=== PATIENT | male | born 2000 | race Caucasian/White ===

== ENCOUNTER 2023-01-07 17:54 | Emergency (ER) | payer OTHER, SELFPAY ==
[2023-01-07 18:06] VITALS: BP 137/76; PULSE 75; RESP 16; TEMP 37.5; O2SAT 99; BMI 24.5
--- NOTE | 2023-01-07 18:18 | ED.SKABFB ---
HPI - Skin/Abscess/Foreign Bdy <DILIP Parks - Last Filed: 01/07/23 19:30> General Chief complaint: Skin/Abscess/Foreign Body Stated complaint: Head lac Time Seen by Provider: 01/07/23 18:17 Source: patient Mode of arrival: Ambulatory Limitations: no limitations History of Present Illness HPI narrative: 22-year-old male who presents to the emergency department with a laceration to the crown of his scalp after he states he ran into an airplane weighing and had bleeding from a scalp. He denies having a headache, difficulty concentrating, blurred vision, dizziness or loss of consciousness, denies neck pain or shortness of breath, denies vomiting. He states that his tetanus is up-to-date. Was sent over from the [employer] with a work-related injury and did not bring work injury paperwork today. He denies any medical condition, not anticoagulated. Related Data Allergies Allergy/AdvReac Type Severity Reaction Status Date / Time No Known Drug Allergies Allergy Verified 01/07/23 18:10 Review of Systems <DILIP Parks - Last Filed: 01/07/23 19:30> Review of Systems ROS Unobtainable: All systems reviewed & are unremarkable except as noted in HPI and below Patient History <DILIP Parks - Last Filed: 01/07/23 19:30> Social History Smoking Status: Never smoker Smoking Status: Never smoker alcohol intake frequency: 0-2 drinks per day Substance Use Type: does not use Exam <DILIP Parks - Last Filed: 01/07/23 19:30> Narrative Exam Narrative: Reviewed vitals signs and nursing notes. General: Pleasant, sitting upright, in no acute distress, well groomed, afebrile HEENT: symmetrical facial expressions, moist mucous membranes, neck is supple, scalp with 2 cm laceration, this is linear, no foreign body, patient has a thick had a pair, this was numbed up with lidocaine with epi, and staple repair was completed with 4 debby. Patient tolerated well, wound is hemostatic. MSK: moves all extremities, no weakness, normal tone, ambulatory without deficit Skin: brisk capillary refill, without rash or wound Neuro: normal speech and cognition, A&O x3 Initial Vital Signs Initial Vital Signs: Vital Signs Temperature 99.5 F 01/07/23 18:06 Pulse Rate 75 01/07/23 18:06 Respiratory Rate 16 01/07/23 18:06 Blood Pressure 137/76 01/07/23 18:06 Pulse Oximetry 99 01/07/23 18:06 Oxygen Delivery Method Room Air 01/07/23 18:06 <Mich Tirado DO - Last Filed: 01/07/23 19:34> Initial Vital Signs Initial Vital Signs: Vital Signs Temperature 99.5 F 01/07/23 18:06 Pulse Rate 75 01/07/23 18:06 Respiratory Rate 16 01/07/23 18:06 Blood Pressure 137/76 01/07/23 18:06 Pulse Oximetry 99 01/07/23 18:06 Oxygen Delivery Method Room Air 01/07/23 18:06 Procedures <DILIP Parks - Last Filed: 01/07/23 19:30> Laceration Repair Laceration 1: Site: scalp Side (If applicable): left Size (cm): 2 Description: linear Depth: simple, single layer Local Anesthetic: lidocaine 2% and with epi Amount of anesthesia used (mL): 3 Pre-repair: wound explored, irrigated extensively and deep structures intact Skin layer closed with: debby (x4) Course <DILIP Parks - Last Filed: 01/07/23 19:30> Vital Signs Vital signs: Vital Signs - 8 hr 01/07/23 18:06 Temperature 99.5 F Pulse Rate 75 Respiratory Rate 16 Blood Pressure 137/76 Pulse Oximetry 99 Oxygen Delivery Method Room Air <Mich Tirado DO - Last Filed: 01/07/23 19:34> Vital Signs Vital signs: Vital Signs - 8 hr 01/07/23 18:06 Temperature 99.5 F Pulse Rate 75 Respiratory Rate 16 Blood Pressure 137/76 Pulse Oximetry 99 Oxygen Delivery Method Room Air MDM - Skin/Abscess/Foreign Bdy <DILIP Parks - Last Filed: 01/07/23 19:30> MDM Narrative Medical decision making narrative: Chief Complaint: Head injury with laceration Multiple etiologies for patient's symptoms considered including, but not limited to: Soft tissue injury, skull fracture, intracranial hemorrhage, C-spine injury, concussion I have independently reviewed the patient's vital signs and nursing notes as well as prior records if available. Pertinent Imaging reviewed: [facility] C-spine and [place] head CT ruled out C-spine CT and head CT Course of care: Patient's wound was repaired with debby, tolerated well, his tetanus is up-to-date, he does not have any concussive symptoms. Recommend to follow-up with his PCP, have staple removal in 7 days. Given strict return precautions for worsening symptoms, altered mentation, dizziness, vomiting, neck pain to return. Social considerations that may affect disposition: none Questions are addressed and there is agreement with the plan and for follow-up. Patient is appropriate for outpatient management. Discharge Plan Departure Patient Disposition: Home Clinical Impression: Work related injury Laceration of head Qualifiers: Encounter type: initial encounter Location of open wound of head: scalp Foreign body presence: without foreign body Qualified Code(s): S01.01XA - Laceration without foreign body of scalp, initial encounter Head injury Qualifiers: Encounter type: initial encounter Qualified Code(s): S09.90XA - Unspecified injury of head, initial encounter Instructions: DI for Laceration Repair -- Debby Activity Restrictions/Additional Instructions: *You have been diagnosed with a head laceration. Please have these debby removed in 7 days. You may have a concussion, look out for difficulty concentrating, blurred vision, headache, dizziness and not feeling well. Please follow-up with your primary care or [place] have your debby removed in 7 days. I hope you feel better soon, please get clearance to return to duty, I hope you feel better soon. *What to do: *Please continue to take your regular medications as directed. [ ] New medication prescriptions sent to your pharmacy: [ ] [ ] New medication written as a paper prescription [ x] No new medications given *Please follow up with your primary care provider in 2-3 days, call for an appointment. Let them know you were seen in the Emergency Department and that we asked that you be seen for follow-up. We will electronically transmit a record of today's note if your PCP is in our system *If you do not have a primary care provider please contact [phone] to establish care with one of the [facility] primary care providers. *Return to Emergency Department if you should have any new, worsening, or concerning symptoms, such as [fever greater than 101F, chills, worsening pain, persistent vomiting or other bothersome symptoms]. Referrals: Provider,Sharla DUNCAN [Primary Care Provider] - Stand Alone Forms: Patient Portal/API <Mich Tirado DO - Last Filed: 01/07/23 19:34> Cosign ED Attending Cosignature Attestation: Dr Tirado Co-Sign Statement: I was available for consultation during this patient's emergency department visit. This chart is signed by myself for administrative purposes only. I did not have direct contact with this patient during this visit. They were seen independently by the APC.
== END 2023-01-07 18:51 | disposition home or self-care (01) ==
PROVIDERS: Emergency Provider Nurse Practitioner Critical Care Medicine
DX: S01.01XA Laceration without foreign body of scalp, initial encounter (principal); S09.90XA Unspecified injury of head, initial encounter; W22.8XXA Striking against or struck by other objects, initial encounter
CPT/HCPCS: 12001; 99281; 99283

== ENCOUNTER → 2023-06-29 08:07 | Outpatient (CLI) | payer OTHER, SELFPAY ==
--- NOTE | 2023-06-29 | DI.MRI.S_ITS ---
PROCEDURE: MR SHOULDER LT W CON INDICATIONS: PAIN IN LEFT SHOULDER TECHNIQUE: After the administration of 12 mL of dilute intra-articular Gadolinium contrast, oblique coronal T1 and T2 spin echo with fat saturation, oblique sagittal T1 spin echo with and without fat saturation, oblique sagittal T2 fast spin echo with fat saturation, axial T1 spin echo with fat saturation through the shoulder. COMPARISON: [facility], , [place] SHOULDER INJECTION MR/CT LT, 06/29/2023, 8:33. FINDINGS: Image quality: Excellent. Rotator cuff: The supraspinatus, infraspinatus, and subscapularis tendons appear intact throughout. No rotator cuff muscle atrophy on sagittal images. Bones and bursae: Osseous irregularity is seen at the posterior humeral head measuring 19 x 19 x 4 mm, which is suspicious for a chronic Hill-Sachs lesion. No CT osseous edema is seen. No acute trabecular bone injury. Mild blunting of the anterior glenoid is seen with an estimated 5% loss of anterior glenoid bone stock estimated using the best fit hamilton technique. Glenohumeral articular cartilages are otherwise intact. Minimal degenerative changes at the acromioclavicular joint. Trace subacromial/subdeltoid bursal fluid. No filling defect within the glenohumeral joint space. Capsule and soft tissues: Diminutive appearance of the anteroinferior labrum is suspicious for chronic tearing. Proximal biceps long head tendon demonstrates intrasubstance signal that may be related to tendinosis and partial tearing versus intra tendinous injection of articular contrast material. Glenohumeral ligaments are intact. IMPRESSION: 1. Findings suspicious for remote prior anterior instability including a chronic Hill-Sachs lesion at the posterior humeral head measuring 19 x 19 x 4 mm without associated osseous edema. 2. Anteroinferior labrum appears diminutive, suspicious for chronic tearing. Mild blunting of the adjacent anteroinferior glenoid is seen with an estimated 5% loss of glenoid bone stock. 3. Intrasubstance signal within the proximal biceps long head tendon may be secondary to tendinosis and partial tearing versus intratendinous injection of contrast material during the arthrogram injection. Approved by: Jayson Jones M.D. on 06/29/2023 at 11:51
--- NOTE | 2023-06-29 | DI.RAD.S_ITS ---
PROCEDURE: [place] SHOULDER INJECTION MR/CT LT INDICATIONS: PAIN IN LEFT SHOULDER COMPARISON: None. TECHNIQUE: The indications, alternatives, benefits, risks, and complications of the procedure were explained to the patient. Written informed consent was obtained and placed in the chart. The shoulder was examined fluoroscopically and a site for needle placement chosen for entry into the glenohumeral joint from an anterior approach. The skin was prepped and draped in a sterile fashion, and 1% lidocaine infiltrated from skin down to joint capsule. A spinal needle was inserted into the glenohumeral joint, and a small amount of iodinated contrast media injected to confirm intra-articular placement of the needle tip. This was followed by approximately 12 mL dilute solution of a gadolinium containing MR contrast agent. The needle was removed and a dressing was applied. The patient was given postprocedural instructions and sent to the MR suite for MR imaging. FINDINGS: A single fluoroscopic spot image demonstrates intra-articular location of injected iodinated contrast. IMPRESSION: Successful fluoroscopically guided administration of dilute Gadolinium solution into the shoulder joint for MR arthrogram. Dictated by: Jayson Harris M.D. on 06/29/2023 at 9:30 Approved by: Jayson Harris M.D. on 06/29/2023 at 9:32
== END ==
DX: M25.512 Pain in left shoulder (principal); R93.7 Abnormal findings on diagnostic imaging of other parts of musculoskeletal system
CPT/HCPCS: 23350; 73222